=== PATIENT | female | born 2000 | race African-American/Black ===

== ENCOUNTER 2022-10-03 10:40 | Emergency (ER) | payer OTHER, SELFPAY ==
[2022-10-03 11:12] VITALS: BP 110/72; PULSE 91; RESP 18; TEMP 36.8; O2SAT 98; BMI 19.2
[2022-10-03 13:50] LABS: HIV 1/2/P24 Combo Screen* Negative (Negative)
--- NOTE | 2022-10-03 14:40 | ED.NURSE ---
Went over discharge paperwork in detail with patient. Pt understands her plan of care.
--- NOTE | 2022-10-03 16:59 | ED.GENADULT ---
HPI - General Adult General Date Seen: 10/03/22 Chief complaint: Unspecified Complaint, Adult Stated complaint: emergency exposure to HIV Time Seen by Provider: 10/03/22 12:38 Source: patient Mode of arrival: ambulatory Limitations: no limitations History of Present Illness HPI narrative: Patient is 21-year-old female who presents here for evaluation she tells me that her significant other was positive for HIV on the weekend. When I asked her where her he had this tested she said in [place], but would not elaborate further. sHe has self has no symptoms. Denies any fevers chills or sweats, any muscle aches, she is worried as she had vaginal intercourse with him 4 days ago. She has no previous history of testing positive for HIV but does not really remember any test for HIV, she is on no medications, no allergies. 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 From [facility] Related Data Previous Rx's Medication Instructions Recorded emtricitabine 200 mg-tenofovir 1 tab PO DAILY #30 tabs 10/03/22 disoproxil fumarate 300 mg tablet (Truvada) raltegravir 400 mg tablet 400 mg PO BID #60 tabs 10/03/22 (Isentress) Allergies Allergy/AdvReac Type Severity Reaction Status Date / Time No Known Drug Allergies Allergy Verified 10/03/22 11:17 Review of Systems Status of ROS: Reports: 10 or more systems reviewed and unremarkable except as noted in History and below Exam Narrative: Exam Narrative: Patient is speaking normally,no problem with slurring words, oriented x3. Head eyes ears nose and throat exam show equal pupils, no scleral icterus, extraocular muscles are normal, no facial droop, speech is normal, trachea normal and midline. Thyroid normal midline palpable not enlarged. Chest shows symmetrical rise bilaterally, normal auscultation with no wheezes, no increased work of breathing, no overt bruising or lesions seen, no tenderness is noted on auscultation. Heart sounds normal with no S3-S4 no murmurs clicks or gallops. Abdomen shows no obvious masses or hepatosplenomegaly, no organomegaly, bowel sounds are normal in all quadrants. No tenderness is noted also in all quadrants. Upper and lower extremities show normal power, normal range of motion, pulses are normal, sensations normal, fine motor movements are normal, pelvis is stable to rocking. Cervical spine shows normal range of motion, and palpably not tender. Thoracic spine shows normal range of motion, and palpably not tender, lumbar spine shows no tenderness to palpation percussion and is otherwise normal range of motion. Skin shows no rashes, petechiae or eccymosis. Const: Vital Signs, click to edit/add: Vital Signs - 24 hr 10/03/22 11:12 Temperature 98.2 F Pulse Rate [Right Pulse Oximeter] 91 Respiratory Rate 18 Blood Pressure [Ri ght Upper Arm] 110/72 Pulse Oximetry 98 Oxygen Delivery Me thod Room Air Course Vital Signs Vital signs: Initial Vital Signs Temperature 98.2 F 10/03/22 11:12 Temperature Source Temporal Artery Scan 10/03/22 11:12 Pulse Rate 91 10/03/22 11:12 Pulse Rhythm 10/03/22 11:12 Respiratory Rate 18 10/03/22 11:12 Blood Pressure 110/72 10/03/22 11:12 Blood Pressure Mean 84 10/03/22 11:12 Blood Pressure Position Sitting 10/03/22 11:12 Pulse Oximetry 98 10/03/22 11:12 Oxygen Delivery Method 10/03/22 11:12 Vital Signs Temperature 98.2 F 10/03/22 11:12 Pulse Rate 91 10/03/22 11:12 Respiratory Rate 18 10/03/22 11:12 Blood Pressure 110/72 10/03/22 11:12 Pulse Oximetry 98 10/03/22 11:12 Oxygen Delivery Method 10/03/22 11:12 Temperature 98.2 F 10/03/22 11:12 Pulse Rate 91 10/03/22 11:12 Respiratory Rate 18 10/03/22 11:12 Blood Pressure 110/72 10/03/22 11:12 Pulse Oximetry 98 10/03/22 11:12 Oxygen Delivery Method 10/03/22 11:12 Medical Decision Making MDM Narrative Medical decision making narrative: Following post of prophylactic this, her initial test was negative, we will do a send out test. I did prescribe her both Truvada, and ISENTRESS for this, and she should follow-up within a week, with primary care to get her final result, and consideration of ongoing treatment. Thirty days above medications were prescribed. Until we get the final result, she should also consider using protection, but I reassured her that it is a low chance of transmission. Lab Data Labs: Lab Results 10/03/22 Range/Units 12:40 HIV 1&2 Ab/P24 Ag 4thGn Negative (Negative) Discharge Plan Discharge Clinical Impression: Exposure to HIV Patient Disposition: Home, Self-Care Instructions: Postexposure Prophylaxis (ED) Additional Instructions: Home rest take the medications as directed, these are post exposure prophylaxis, your initial rapid test is negative, this is tells us that you did not have HIV going into this. A send out test is further to confirm this sent. You will need to follow-up with primary care within 1 week, not in the ER. Couple primary care physicians are listed which she may see. Activity Level: No Restrictions Discharge Diet: Regular Prescriptions: New Isentress 400 mg tablet 400 mg PO BID Qty: 60 2RF emtricitabine-tenofovir (TDF) [Truvada] 200-300 mg tablet 1 tab PO DAILY Qty: 30 0RF Follow Up/Referrals: Donnie Chaudhari MD [Staff Physician] - Keyana Osullivan MD [Staff Physician] - Provider,Not a Local [Primary Care Provider] - Stand Alone Forms: [employer] Info Instructions
== END 2022-10-03 14:37 | disposition home or self-care (01) ==
PROVIDERS: Emergency Provider Family Medicine
DX: Z20.6 Contact with and (suspected) exposure to human immunodeficiency virus [HIV] (principal)
CPT/HCPCS: 36415; 86703; 99283

== ENCOUNTER 2025-05-03 14:40 | Emergency (ER) | payer OTHER, SELFPAY ==
--- OUTSIDE RECORDS SUMMARY | 2025-05-03 14:42 | XMS_ITS | Clinical Summary ---
Author Organization [facility] Address [address] [place] [id number] Care Team Providers Care Hospital Housekeeper Name Role Phone Pcp, No Primary Care Provider Unavailabl e Allergies No known active allergies Medications No known medications Immunizations Immunization Administration Dates Next Due Influenza, Injectable, Mdck, Quadrivalent, W/preservative 06/16/2021 Tdap 05/10/2021 Social History Tobacco Use Types Packs/Day Years Used Date Smoking Tobacco: Never Smokeless Tobacco: Never Alcohol Use Standard Drinks/Week Comments Not Currently 0 (1 standard drink = 0.6 oz pur e alcohol) Social Connections Answer Date Recorded Frequency of Communication with Friends and Fami ly Not on file 05/30/2022 Comments No Sex and Gender Information Value Date Recorded Sex Assigned at Not on file Legal Sex Female 8:17 PM OFFICE EXECUTIVE Gender Identity Not on file Sexual Orientation Not on file Obstetrics History Last Filed Vital Signs Vital Sign Reading Time Taken Comments Blood Pressure 100/66 05/30/2022 11:17 AM CDT Pulse 52 05/30/2022 11:17 AM CDT Temperature - - Respiratory Rate - - Oxygen Saturation 98% 05/30/2022 11:17 AM CDT Inhaled Oxygen Concentration - - Weight 48.2 kg (106 lb 4.8 oz) 05/30/2022 11:17 AM CDT Height 158.3 cm (5' 2.32) 05/30/2022 11:17 AM C DT Body Mass Index 19.24 05/30/2022 11:17 AM CDT Plan of Treatment Health Maintenance Due Date Last Done Comments Depression screening for age 12+ 2012 HIV for age 15-65 12/23/2015 HPV series for age 9-26 (1 - 3-dose series) 12/23/2015 Hepatitis C screening for ag e 18-79 2018 Hepatitis B series for 19+ ( 1 of 3 - 19+ 3-dose series) 12/23/2019 Pap test for age 21-65 2021 BMI (ht and wt on same day) for age 18+ 05/30/2023 05/30/2022 COVID-19 vaccine series (2 - 2023- season) 2024 10/18/2021 Influenza Vaccine (#1) 2025 06/16/2021 Tetanus booster 05/10/2031 05/10/2021 Pneumococcal series for age 6-49 Aged Out No longer eligible based on patient's age to complete this topic Insurance Care Teams Hospital Housekeeper Relationship Specialty Start Date End Date Pcp, No . PCP - General 05/30/22
--- OUTSIDE RECORDS SUMMARY | 2025-05-03 14:42 | XMS_ITS | Clinical Summary ---
Author Organization [facility] Address [address] [place] [id number] Care Team Providers Care Merchant Miller Name Role Phone No Ref-Primary, Physician Primary Care Provider Allergies No known active allergies Medications No known medications Active Problems No known active problems Social History Tobacco Use Types Packs/Day Years Used Date Smoking Tobacco: Never Smokeless Tobacco: Never Adolescent Education Answer Date Record ed Getting School Help Needed Not on file 05/26 Comments No Sex and Gender Information Value Date Recorded Sex Assigned at Not on file Legal Sex Female 10:12 AM CDT Gender Identity Not on file Sexual Orientation Not on file Last Filed Vital Signs Vital Sign Reading Time Taken Comments Blood Pressure 105/73 12/17/2021 11:03 AM CDT Pulse 60 12/17/2021 11:03 AM CDT Temperature 36.9 C (98.5 F) 12/17/2021 11:03 AM CDT Respiratory Rate - - Oxygen Saturation 99% 12/17/2021 11:03 AM CDT Inhaled Oxygen Concentration - - Weight - - Height - - Body Mass Index - - Plan of Treatment Not on file Insurance [employer] Care Teams Merchant Miller Relationship Specialty Start Date End Date No Ref-Primary, Physician PCP - General 12/17/21
[2025-05-03 14:56] VITALS: BP 112/72; PULSE 60; RESP 20; TEMP 36.5; O2SAT 99; BMI 22.1
[2025-05-03 15:35] LABS: Appearance Urine Cloudy (Clear)
--- NOTE | 2025-05-03 16:51 | ED.FEMALEGU ---
HPI - Female Genitourinary General Date Seen: 05/03/25 Chief complaint: Urogenital Problems, Female Stated complaint: UTI, blood in urine Time Seen by Provider: 05/03/25 16:16 Source: patient Mode of arrival: ambulatory Limitations: no limitations History of Present Illness HPI Narrative: Patient is a 24-year-old female presenting to the emergency department for dysuria. Patient states about a week ago she started having dysuria. States she notices mostly when she finishes urinating. Is also having some suprapubic pain. States she 1st noticed the pain while having sex. She is not concerned this could be an STD. Began to notice blood in the urine 2 days ago. Denies fevers, chills, chest pain, shortness of breath diarrhea, constipation. Denies history of previous UTIs. Has never had symptoms like this before. Denies any flank pain. Denies lightheadedness or dizziness. No other concerns noted. Related Data Previous Rx's ?Medication ?Instructions ?Recorded nitrofurantoin macrocrystal 100 mg 100 mg PO Q12H #10 caps 05/03/25 capsule Allergies Allergy/AdvReac Type Severity Reaction Status Date / Time No Known Drug Allergies Allergy Verified 05/03/25 14:54 Review of Systems Status of ROS: Reports: 10 or more systems reviewed and unremarkable except as noted in History and below PFSH PFS Social History Smoking Status: Never smoker Do you use any of these nicotine containing products: None How often do you have a drink containing alcohol: never AUDIT-C Alcohol total score: 0 Non-prescribed substance use: denies use Exam Narrative: Exam Narrative: Const: Well-nourished, Well-developed, in mild distress Eyes: PERRL, no conjunctival injection, and symmetrical lids HENT: Atraumatic external nose and ears. Moist mucous membranes. GI: Suprapubic tenderness, Nondistended, No rebound or guarding. MSK:Extremities w/o deformity, Normal Active ROM Skin: Warm, Dry. No rashes or lesions. Neuro: Normal Muscle tone, No focal neurological deficits. Psych: Awake, Alert, & Oriented x3. Appropriate mood and affect. Const: Vital Signs, click to edit/add: Vital Signs - 24 hr 05/03/25 14:56 Temperature 97.7 F Pulse Rate [Pulse Oximeter] 60 Respiratory Rate 20 Blood Pressure [Ri ght Upper Arm] 112/72 Pulse Oximetry 99 Oxygen Delivery Me thod Room Air Course Vital Signs Vital signs: Initial Vital Signs Temperature 97.7 F 05/03/25 14:56 Temperature Source Temporal Artery Scan 05/03/25 14:56 Pulse Rate 60 05/03/25 14:56 Respiratory Rate 20 05/03/25 14:56 Blood Pressure 112/72 05/03/25 14:56 Blood Pressure Mean 85 05/03/25 14:56 Pulse Oximetry 99 05/03/25 14:56 Oxygen Delivery Method Room Air 05/03/25 14:56 Vital Signs Temperature 97.7 F 05/03/25 14:56 Pulse Rate 60 05/03/25 14:56 Respiratory Rate 20 05/03/25 14:56 Blood Pressure 112/72 05/03/25 14:56 Pulse Oximetry 99 05/03/25 14:56 Oxygen Delivery Method Room Air 05/03/25 14:56 Temperature 97.7 F 05/03/25 14:56 Pulse Rate 60 05/03/25 14:56 Respiratory Rate 20 05/03/25 14:56 Blood Pressure 112/72 05/03/25 14:56 Pulse Oximetry 99 05/03/25 14:56 Oxygen Delivery Method Room Air 05/03/25 14:56 MDM - Female Genitourinary MDM Narrative Medical decision making narrative: Patient is a 24-year-old female presenting to the emergency department for concerns of an STD and UTI. Urinalysis was done in triage which does show a likely UTI. Patient would like a test for chlamydia and gonorrhea also. This will be ordered. She does have a UTI and her gonorrhea chlamydia test were negative. She does not appear to have pyelonephritis. No signs of pelvic inflammatory disease as symptoms seem more consistent with a UTI. Better age diverticulitis seems very unlikely. Is not having any right lower quadrant pain appendicitis seems unlikely. I believe further lab work and imaging would be unnecessary for this patient. She is safe for discharge. She is agreeable to this plan. Will start her Macrobid. Lab Data Labs: Lab Results 05/03/25 Range/Units 14:58 Urine Color Yellow (Yellow) Urine Appearance Cloudy A (Clear) Urine pH 6.0 (5.0-8.5) Ur Specific [place] 1.025 (1.000-1.030) Urine Protein 2+ A (Negative) Urine Glucose (UA) Negative (Negative) Urine Ketones Trace A (Negative) Urine Blood 2+ A (Negative) Urine Nitrite Negative (Negative) Urine Bilirubin Negative (Negative) Urine Urobilinogen 0.2 (0.2-1.0) Ur Leukocyte Esterase 1+ A (Negative) Urine RBC 25-50 A (0-2) Urine WBC 10-25 A (0-5) Ur Squamous Epith Cells Moderate A (None-Few) Urine Bacteria Moderate A (None) C.trachomatis Ampl DNA NOT DETECTED (No Detected) N.gonorrhoeae Ampl DNA NOT DETECTED (No Detected) Discharge Plan Discharge Clinical Impression: Acute cystitis Qualifiers: Hematuria presence: with hematuria Qualified Code(s): N30.01 - Acute cystitis with hematuria Patient Disposition: Home, Self-Care Condition: Stable Instructions: Urinary Tract Infection in Women (ED) Additional Instructions: Take the antibiotics as directed. Return to emergency department for new or worsening symptoms. Prescriptions: New nitrofurantoin macrocrystal 100 mg capsule 100 mg PO Q12H Qty: 10 0RF Rx Instructions: must administer with a meal/food Follow Up/Referrals: Provider,Not a Local [Primary Care Provider, Family Practice] Stand Alone Forms: [employer] Info Instructions
[2025-05-03 17:50] VITALS: BP 106/73; PULSE 55; RESP 16; O2SAT 98
[2025-05-03 18:41] LABS: Chlamydia DNA Amplified* NOT DETECTED (No Detected); GC DNA Amplified* NOT DETECTED (No Detected)
== END 2025-05-03 19:09 | disposition home or self-care (01) ==
PROVIDERS: Emergency Provider Student in an Organized Health Care Education/Training Program
DX: N30.01 Acute cystitis with hematuria (principal)
CPT/HCPCS: 81001; 87086; 87491; 87591; 99283

== ENCOUNTER 2025-05-29 13:31 | Emergency (ER) | payer OTHER, SELFPAY ==
--- OUTSIDE RECORDS SUMMARY | 2025-05-29 13:34 | XMS_ITS | Clinical Summary ---
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 Gender Identity Not on file Sexual Orientation [...] age 15-65 12/23/2015 HPV series for age 9-45 (1 - 3-dose series) 12/23/2015 Hepatitis C screening for ag e 18-79 2018 Hepatitis B series for 19+ ( 1 of 3 - 19+ 3-dose series) 12/23/2019 Pap test for age 21-65 2021 BMI (ht and wt on same day) for age 18+ 05/30/2023 05/30/2022 COVID-19 vaccine series (2 - 2024- season) 2025 10/18/2021 Influenza Vaccine (#1) 2025 06/16/2021 Tetanus booster 05/10/2031 05/10/2021 RSV vaccine for adults or (1 - 1-dose 75+ series) 12/23/2075 Pneumococcal series for age 6-49 Aged Out No longer eligible based on patient's [id number] Care Teams Glove Printer Relationship Specialty Start Date End Date Pcp, No . PCP - General 05/30/22
--- OUTSIDE RECORDS SUMMARY | 2025-05-29 13:34 | XMS_ITS | Clinical Summary ---
Author Organization [facility] Address [address] [place] [address] Care Team Providers Care Smash Fixer Name Role Phone No Ref-Primary, Physician Primary [...] on file Insurance [employer] Care Teams Smash Fixer Relationship Specialty Start Date End Date No Ref-Primary, Physician PCP - General 12/17/21
[2025-05-29 13:40] VITALS: BP 97/61; PULSE 62; RESP 16; TEMP 36.8; O2SAT 98; BMI 24.5
--- NOTE | 2025-05-29 13:58 | CRLHL7_ITS ---
For Patients: As a result of the 21st Century Cures Act, medical imaging exams and procedure reports are released immediately into your electronic medical record. You may view this report before your referring provider. If you have questions, please contact your health care provider. Indication: Abd pain and bilateral axillary lymphadenopathy Technique: CT of the chest, abdomen, and pelvis was obtained with 62 mL of Isovue 370 intravenous contrast. Please note that all CT scans at this facility use dose modulation, iterative reconstruction, and/or weight-based dosing when appropriate to reduce radiation dose to as low as reasonably achievable. Comparison: None. Findings: CHEST: Medical devices: None. Thyroid: Normal. Lymph nodes: No supraclavicular, axillary, mediastinal, or hilar lymphadenopathy. Subcentimeter bilateral axillary lymph nodes are seen. Vasculature: Aorta and main pulmonary artery diameters are within normal range. Heart: Normal. No pericardial effusion. Other mediastinal structures: Anterior mediastinal soft tissue is favored to represent residual thymus. Lung parenchyma and pleura: No significant abnormality. Airways: No significant abnormality. Chest wall: No significant abnormality. ABDOMEN/PELVIS: Liver and biliary tree: Normal. Gallbladder: Normal. Spleen: Normal. Pancreas: Normal. Adrenal glands: Normal. Kidneys and ureters: No hydronephrosis or obstructing renal calculi. Gastrointestinal tract: No evidence of acute appendicitis. No evidence of bowel obstruction. Distended stomach. Peritoneal cavity: Normal. Bladder: Normal. Pelvic organs: Normal. Vasculature: Normal. Lymph nodes: Normal. Abdominal wall: Small to moderate fat containing periumbilical hernia. Musculoskeletal: Normal. Impression: 1. No lymphadenopathy is seen. 2. Partially distended stomach. Consider correlation with recent oral intake or for signs or symptoms of delayed gastric emptying. Please note that all CT scans at this facility use dose modulation, iterative reconstruction, and/or weight-based dosing when appropriate to reduce radiation dose to as low as reasonably achievable. Dictated by Kai Dunn MD @ 05/29/2025 3:22:55 PM (Electronically Signed)
--- NOTE | 2025-05-29 14:00 | ED_ITS ---
HPI - Abdominal Pain General Chief Complaint: Abdominal Pain Stated Complaint: referred here by primary provider for tests Time Seen by Provider: 05/29/25 13:37 History of Present Illness HPI narrative: Patient is a 24-year-old [employer] student from [employer] who presents with progressive lymphadenopathy in her axilla bilaterally. She has had no fevers no chills no night sweats but she does have abdominal distention as well as pain left upper quadrant. States she is having her menses down is not sexually active. She has had no fevers no chills no night sweats. She feels like it is difficult to swallow her food. No other related symptoms patient has had symptoms progressing for the last several weeks. Related Data Home Medications ?Medication ?Instructions ?Recorded ?Confirmed No Known Home Medications 05/29/2505/05 Allergies Allergy/AdvReac Type Severity Reaction Status Date / Time No Known Drug Allergies Allergy Verified 05/29/25 14:48 Review of Systems Status of ROS Reports: 10 or more systems reviewed and unremarkable except as noted in History and below PFSH PFSH Social History Smoking Status: Never smoker Do you use any of these nicotine containing products: None How often do you have a drink containing alcohol: never AUDIT-C Alcohol total score: 0 Non-prescribed substance use: denies use Exam Narrative: Exam Narrative: EXAM GENERAL: Patient appears comfortable and well. EYES: No scleral icterus. ENT: Tympanic membranes and oropharynx normal. THYROID: no thyroid nodules or thyromegaly. LYMPH: No supraclavicular or cervical lymphadenopathy. SKIN: Visible skin seen during exam normal or with benign process only. EXT: No dependent lower extremity pedal edema. HEART: Regular rate and rhythm with no murmurs, rubs, or gallops. LUNGS: Clear to auscultation bilaterally with no crackles or wheezes. ABD: Soft, non tender, non distended. PSYCH: Good eye contact, speech is not pressured. Bilateral axillary lymphadenopathy noted. To palpation. Const: Vital Signs, click to edit/add: Vital Signs - 24 hr 05/29/25 13:40 Temperature 98.3 F Pulse Rate [Pulse Oximeter] 62 Respiratory Rate 16 Blood Pressure [Ri ght Upper Arm] 97/61 Pulse Oximetry 98 Oxygen Delivery Me thod Room Air Course Course ED Course: CT chest abdomen pelvis pending. CBC comprehensive metabolic lipase pending. UA pending. Vital Signs Vital signs: Initial Vital Signs Temperature 98.3 F 05/29/25 13:40 Temperature Source Temporal Artery Scan 05/29/25 13:40 Pulse Rate 62 05/29/25 13:40 Respiratory Rate 16 05/29/25 13:40 Blood Pressure 97/61 05/29/25 13:40 Blood Pressure Mean 73 05/29/25 13:40 Blood Pressure Position Sitting 05/29/25 13:40 Pulse Oximetry 98 05/29/25 13:40 Oxygen Delivery Method Room Air 05/29/25 13:40 Vital Signs Temperature 98.3 F 05/29/25 13:40 Pulse Rate 62 05/29/25 13:40 Respiratory Rate 16 05/29/25 13:40 Blood Pressure 97/61 05/29/25 13:40 Pulse Oximetry 98 05/29/25 13:40 Oxygen Delivery Method Room Air 05/29/25 13:40 Temperature 98.3 F 05/29/25 13:40 Pulse Rate 62 05/29/25 13:40 Respiratory Rate 16 05/29/25 13:40 Blood Pressure 97/61 05/29/25 13:40 Pulse Oximetry 98 05/29/25 13:40 Oxygen Delivery Method Room Air 05/29/25 13:40 MDM - Abdominal Pain MDM Narrative Medical decision making narrative: patient presents with painful lymphadenopathy in the axilla bilaterally and left upper quadrant abdominal pain. I did do CT chest abdomen pelvis and I see no evidence of pathologic adenopathy. She does have some tender lymph nodes in the axilla bilaterally which appear to be reactive lymph nodes. Laboratory studies are reassuring exam is otherwise normal. I do think that she is having reactive lymphadenopathy from a viral syndrome and I do think she has some minor dyspepsia. I did place her on Prilosec 20 mg daily for the next 30 days as her see me back in the office or student health to follow-up in 2-3 weeks. Lab Data Labs: Lab Results 05/29/25 05/29/25 Range/Units 14:10 14:33 WBC 6.82 (4.50-11.00) K/uL RBC 4.46 (4.00-5.20) m/uL Hgb 13.5 (12.0-16.0) gm/dL Hct 40.6 (33.0-51.0) % MCV 91 (80-100) fL MCH 30 (26-34) pg MCHC 33 (32-36) gm/dL RDW Coeff of Gladys 13.0 (11.5-15.5) % Plt Count 180 (140-440) K/uL Neut % (Auto) 57.8 (42.0-72.0) % Lymph % (Auto) 31.2 (20-44) % Henry % (Auto) 9.8 (0.0-11.0) % Eos % (Auto) 1.0 (0.0-7.0) % Baso % (Auto) 0.1 (0.0-3.0) % Neut # (Auto) 3.93 (1.7-7.0) K/uL Lymph # (Auto) 2.13 (0.90-2.90) K/uL Henry # (Auto) 0.70 (0.00-0.90) K/UL Eos # (Auto) 0.07 (0.00-0.50) K/uL Baso # (Auto) 0.01 (0.00-0.30) K/uL Abs Immat Gran (auto) 0.01 (0.00-0.30) K/uL Imm/Tot Granulo (auto) 0.1 % Sodium 139 (135-149) mmol/L Potassium 4.0 (3.6-5.1) mmol/L Chloride 104 (96-114) mmol/L Carbon Dioxide 28 (20-32) mmol/L Anion Gap 7 (7-15) mEq/L BUN 16 (5-24) mg/dL Creatinine 0.5 (0.5-1.5) mg/dL Estimated Creat Clear 155.29 Estimated GFR 134 ml/min Glucose 108 (60-115) mg/dL Calcium 8.7 (8.4-10.6) mg/dL Total Bilirubin 0.6 (0.1-1.5) mg/dL AST 24 (12-35) U/L ALT 13 (4-35) U/L Alkaline Phosphatase 55 (40-150) U/L Total Protein 7.3 (6.0-8.3) g/dL Albumin 4.1 (3.3-5.0) g/dL Lipase 77 (23-300) U/L Urine Color Yellow (Yellow) Urine Appearance Clear (Clear) Urine pH 7.5 (5.0-8.5) Ur Specific [place] 1.015 (1.000-1.030) Urine Protein Negative (Negative) Urine Glucose (UA) Negative (Negative) Urine Ketones Negative (Negative) Urine Blood Trace-lysed A (Negative) Urine Nitrite Negative (Negative) Urine Bilirubin Negative (Negative) Urine Urobilinogen 1.0 (0.2-1.0) Ur Leukocyte Esterase Negative (Negative) Urine RBC 0-2 (0-2) Urine WBC 0-2 (0-5) Ur Squamous Epith Cells Few (None-Few) Urine Bacteria None (None) Discharge Plan Discharge Clinical Impression: Gastroenteritis Patient Disposition: Home, Self-Care Condition: Stable Instructions: Gastritis (ED) Additional Instructions: Prilosec 20 mg in the morning for 30 days. Follow-up with Dr. Torres or [facility] in 2-3 weeks. Activity Level: No Restrictions Discharge Diet: Regular Prescriptions: No Action No Known Home Medications Follow Up/Referrals: Provider,Not a Local [Primary Care Provider, Family Practice] Stand Alone Forms: [employer] Info Instructions
[2025-05-29 14:23] LABS: Hematocrit* 40.6 % (33.0-51.0); Hemoglobin* 13.5 gm/dL (12.0-16.0); Immature Granulocytes Abs Auto 0.01 K/uL (0.00-0.30); Immature Granulocytes Pct Auto 0.1 %; Lymphocytes Absolute Auto 2.13 K/uL (0.90-2.90); Mean Corpuscular HGB Conc 33 gm/dL (32-36); Mean Corpuscular Hemoglobin 30 pg (26-34); Mean Corpuscular Volume 91 fL (80-100); RDW Coefficient of Variation % 13.0 % (11.5-15.5); Red Blood Count* 4.46 m/uL (4.00-5.20); White Blood Count* 6.82 K/uL (4.50-11.00)
[2025-05-29 14:30] LABS: Slide Review Reflex No
[2025-05-29 14:37] LABS: Albumin* 4.1 g/dL (3.3-5.0); Chloride* 104 mmol/L (96-114); Sodium* 139 mmol/L (135-149)
[2025-05-29 14:38] LABS: Potassium* 4.0 mmol/L (3.6-5.1)
[2025-05-29 14:40] LABS: Alanine Aminotransferase* 13 U/L (4-35); Alkaline Phosphatase* 55 U/L (40-150); Anion Gap 7 mEq/L (7-15); Aspartate Amino Transferase* 24 U/L (12-35); Bilirubin Total* 0.6 mg/dL (0.1-1.5); Blood Urea Nitrogen* 16 mg/dL (5-24); Carbon Dioxide* 28 mmol/L (20-32); Creatinine* 0.5 mg/dL (0.5-1.5); Est. Creatinine Clearance* 155.29; Estimated Glomerular Filt Rate 134 ml/min; Total Protein* 7.3 g/dL (6.0-8.3)
[2025-05-29 14:40] LABS: Appearance Urine Clear (Clear)
[2025-05-29 14:41] LABS: Calcium* 8.7 mg/dL (8.4-10.6); Glucose* 108 mg/dL (60-115)
== END 2025-05-29 15:50 | disposition home or self-care (01) ==
PROVIDERS: Emergency Provider Internal Medicine
DX: K52.9 Noninfective gastroenteritis and colitis, unspecified (principal)
CPT/HCPCS: 36415; 71260; 74177; 80053; 81001; 81003; 83690; 85025; 99283; 99285; Q9967